=== PATIENT | female | born 1990 | race American Indian/Alaskan Native ===

== ENCOUNTER 2019-01-18 19:49 | Emergency (ER) | payer MEDICAID ==
--- NOTE | 2019-01-18 20:12 | Event Note ---
ED Screening Note ED Screening Note: pt presents with foul odor vaginal discharge no dysuria LNMP december 04 PMHx asthma no allergies This initial assessment/diagnostic orders/clinical plan/treatment(s) is/are subject to change based on patients health status, clinical progression and re- assessment by fellow clinical providers in the ED. Further treatment and workup at subsequent clinical providers discretion. Patient/guardian urged not to elope from the ED as their condition may be serious if not clinically assessed and managed. Initial orders include: UA, urine preg
[2019-01-18 20:13] VITALS: BP 103/73
[2019-01-18 21:43] LABS: HCG Qualitative,Urine Positive (Negative)
[2019-01-18 21:50] LABS: Bilirubin,Urine NEG (Negative); Blood,Urine NEG (Negative); Color,Urine Yellow (Yellow); Hyaline Casts,Urine 2 /LPF; Mucus,Urine 3+ /HPF; Protein,Urine <15 mg/dL mg/dL (Negative)
== END 2019-01-18 23:35 | disposition left against medical advice (07) ==
LOC: ED 19:49
DX: Z53.21 Procedure and treatment not carried out due to patient leaving prior to being seen by health care provider (principal)
CPT/HCPCS: 81001; 81025

== ENCOUNTER 2019-08-31 07:16 | Inpatient (IN) | payer MEDICAID ==
[2019-08-31] MEDS ORDERED: LACTATED RINGERS 1,000 ML ONE (07:33)
[2019-08-31] MEDS ORDERED: OXYTOCIN 20 UNIT/1000ML DRIP 20,000 MILLIUNITS/1,000 ML BAG IV ONE (07:34)
[2019-08-31 07:59] LABS: Hematocrit 29.9 % (30.3-42.9); Hemoglobin 9.7 gm/dl (10.1-14.3); Mean Corpuscular HGB Conc 32 % (30-34); Mean Corpuscular Volume 88 fl (79-97); Platelet Count 448 K/mm3 (140-440); Red Cell Distribution Width 16.3 % (13.2-15.2)
[2019-08-31] MEDS ORDERED: AMPICILLIN/NS 2 GM/100 ML 2 GM/100 ML BAG IV ONE ×2 (08:00→08:06)
[2019-08-31] MEDS ORDERED: TERBUTALINE 1 MG/1 ML INJ IVP PRN (08:00)
[2019-08-31] MEDS ORDERED: LIDOCAINE (2%) 20 MG/1 ML VIAL 20 ML MDV INFILTRATI NR (08:00)
[2019-08-31] MEDS ORDERED: MINERAL OIL 30 ML ORAL LIQD PO PRN (08:00)
[2019-08-31] MEDS ORDERED: OXYTOCIN 20 UNIT/1000ML DRIP 20 UNITS/1,000 ML BAG IV SCH ×2 (08:00→10:00)
[2019-08-31] MEDS ORDERED: ePHEDrine SULFATE 50 MG/1 ML INJ IV PRN (08:00)
[2019-08-31] MEDS ORDERED: LACTATED RINGERS 1,000 ML IV SCH (08:00)
[2019-08-31] MEDS ORDERED: TERBUTALINE 1 MG/1 ML INJ SUB-Q PRN (08:00)
[2019-08-31] MEDS ORDERED: fentaNYL 100 MCG/2 ML INJ IV PRN (08:00)
[2019-08-31] MEDS ORDERED: OXYTOCIN DRIP 30 UNITS/500 ML BAG IV SCH (08:00)
--- NOTE | 2019-08-31 08:04 | History and Physical Report ---
History of Present Illness Date of examination: 08/31/19 Date of admission: 08/31/19 07:21 Chief complaint: labor History of present illness: This is 29 yo at 39 weeks here for contractions. Patient is [facility] patient. Past History Past Medical History: no pertinent history Past Surgical History: no surgical history Family/Genetic History: none Social history: single. denies: smoking, alcohol abuse, prescription drug abuse - Obstetrical History Expected Date of Delivery: 09/10/19 Actual Gestation: 38 Week(s) 4 Day(s) : 4 Para: 3 Hx # Term Pregnancies: 3 Number of Pregnancies: 0 Spontaneous Abortions: 0 Induced : 0 Number of Living Children: 3 Medications and Allergies Allergies Allergy/AdvReac Type Severity Reaction Status Date / Time No Known Allergies Allergy Verified 08/28/19 02:46 Active Meds: Active Medications Ephedrine Sulfate (Ephedrine Sulfate) 10 mg IV Q2M PRN PRN Reason: Hypotension Fentanyl (Sublimaze) 100 mcg IV Q2H PRN PRN Reason: Labor Pain Oxytocin/Sodium Chloride (Pitocin/Ns 20 Unit/1000ml Drip) 20 units in 1,000 mls @ 125 mls/hr IV DIRECT NEVAEH Oxytocin/Sodium Chloride (Pitocin/Ns 30 Unit/500ml) 30 units in 500 mls @ 1 mls/hr IV TITR NEVAEH; Protocol Lactated Ringer's (Lactated Ringers) 1,000 mls @ 125 mls/hr IV DIRECT NEVAEH Lidocaine (Xylocaine 2%) 20 ml INFILTRATI ONCE NR Stop: 09/01/19 07:59 Mineral Oil (Mineral Oil) 30 ml PO QHS PRN PRN Reason: Constipation Terbutaline Sulfate (Brethine) 0.25 mg SUB-Q ONCE PRN PRN Reason: Hyperstimulation/Hypertonicity Terbutaline Sulfate (Brethine) 0.25 mg IVP ONCE PRN PRN Reason: Hyperstimulation/Hypertonicity Review of Systems All systems: negative - Vital Signs Vital signs: Vital Signs Pulse Pulse Ox 96 H 80 L 08/31/19 07:30 08/31/19 07:30 Temp Pulse Resp BP Pulse Ox 103 H 120/62 100 08/31/19 07:45 08/31/19 07:40 08/31/19 07:45 - Physical Exam Breasts: Positive: normal Cardiovascular: Regular rate, Normal S1 Lungs: Positive: Clear to auscultation, Normal air movement Abdomen: Positive: normal appearance, soft, normal bowel sounds. Negative: distention, tenderness, guarding Genitourinary (Female): Positive: normal external genitalia, normal perenium Vagina: Positive: normal moisture Uterus: Positive: normal size, normal contour Anus/Rectum: Positive: normal perianal skin Extremities: Positive: normal Deep Tendon Reflex Grade: Normal +2 - Obstetrical FHR: category 1 Cervical Dilatation: 6 Cervical Effacement Percentage: 80 station: 0 Uterine Contraction Pattern: Regular Uterine Tone Measurement Phase: Contraction Uterine Contraction Intensity: Moderate Results Result Diagrams: 08/31/19 07:45 Abnormal lab results 08/31/19 Range/Units 07:45 WBC 13.1 H (4.5-11.0) K/mm3 RBC 3.40 L (3.65-5.03) M/mm3 Hgb 9.7 L (10.1-14.3) gm/dl Hct 29.9 L (30.3-42.9) % RDW 16.3 H (13.2-15.2) % Plt Count 448 H (140-440) K/mm3 All other labs normal. Assessment and Plan A/P IUP 38 weeks active labor GBS unknown- amp given expect vaginal delivery
[2019-08-31] MEDS ORDERED: DEXMEDETOMIDINE 200 MCG/2 ML VIAL IV ONE (08:17)
[2019-08-31] MEDS ORDERED: fentaNYL-BUPIV 2 MCG/ML-0.125% 200 MCG/100 ML BAG EPIDURAL ONE (08:47)
[2019-08-31] MEDS ORDERED: fentaNYL-BUPIV 2 MCG/ML-0.125% 200 MCG/100 ML BAG EPIDURAL SCH (09:00)
--- NOTE | 2019-08-31 09:04 | Anesthesia Consultation ---
Anesthesia Consult and Med Hx Date of service: 08/31/19 - Airway Anesthetic Teeth Evaluation: Good ROM Head & Neck: Adequate Mental/Hyoid Distance: Adequate Mallampati Class: Class II Intubation Access Assessment: Good - Pulmonary Exam CTA: Yes - Cardiac Exam Cardiac Exam: RRR - Pre-Operative Health Status ASA Pre-Surgery Classification: ASA2, Emergency Proposed Anesthetic Plan: Epidural - Pulmonary Hx Asthma: Yes - Cardiovascular System Hx Hypertension: No - Central Nervous System Hx Seizures: No Hx Psychiatric Problems: No - Endocrine Hx Renal Disease: No Hx Hypothyroidism: No Hx Hyperthyroidism: No - Hematic Hx Anemia: No Hx Sickle Cell Disease: No - Other Systems Hx Alcohol Use: No
--- NOTE | 2019-08-31 09:07 | Progress Note ---
Labor Epidural - Labor Epidural Start Time: 08:21 Stop Time: 08:27 Performed by:: OLGA SKELTON Procedure: Patient is requesting a laboring epidural for laboring pain. Patient IDed, H&P reviewed, all questions and concerns were answered, and consent was signed. Timeout was performed at bedside. Patient in sitting position. Sterile prep and drape was performed. 3 ml of 1% lidocaine skin wheal at L 3- L 4. 18-gauge Touhy epidural needle was advanced to loss of resistance with air technique. Negative CSF negative blood. Epidural catheter advanced to 15 centimeters. Negative aspiration negative test dose. Sterile dressing applied. Patient tolerated procedure.
--- NOTE | 2019-08-31 09:26 | Procedure Note ---
OB Delivery Note - Delivery Date of Delivery: 08/31/19 Surgeon: ABBY HARMAN Estimated blood loss: 100cc - Vaginal Delivery position: OA Intrapartum events: none Delivery induction: none Delivery augmentation: rupture of membranes Delivery monitor: external FHT, external uterine Route of delivery: Delivery placenta: spontaneous Delivery cord: nuchal cord, 3 umbilical vessels Episiotomy: none Delivery laceration: none Anesthesia: none Delivery comments: he patient progressed to complete complete +1 and began pushing. Patient pushed a viable male infant at 0918 prioe to delivery of a loose cord around neck reduced . The infant is a liveborn male with Apgars of 8 and 9 weight 5 pounds 12 ounce the infant was bulb suctioned. The cord was clamped and cut x2 and the infant was passed off to the [facility] team. The placenta delivered spontaneously intact with a three-vessel cord. The patient had no lacerations to repair. laps count correct x2. EBL 100 cc. Patient tolerated procedure well.
[2019-08-31] MEDS ORDERED: NALOXONE 2 MG/2 ML INJ IV PRN (09:30)
[2019-08-31] MEDS ORDERED: ACETAMINOPHEN 325 MG TAB PO PRN (10:00)
[2019-08-31] MEDS ORDERED: WITCH HAZEL/ GLYCERIN PAD TP PRN (10:00)
[2019-08-31] MEDS ORDERED: HYDROcodone/ACETAMINOPHEN 5-325 MG TAB PO PRN (10:00)
[2019-08-31] MEDS ORDERED: PROMETHAZINE 25 MG TAB PO PRN (10:00)
[2019-08-31] MEDS ORDERED: PROMETHAZINE 25 MG RECT SUPP PR PRN (10:00)
[2019-08-31] MEDS ORDERED: LANOLIN/ZINC/DIMETHICONE (LANSINOH) 7 GM TP PRN (10:00)
[2019-08-31] MEDS ORDERED: ONDANSETRON 4 MG/2 ML INJ IV PRN (10:00)
[2019-08-31] MEDS ORDERED: diphenhydrAMINE 25 MG CAP PO PRN (10:00)
[2019-08-31] MEDS ORDERED: KETOROLAC 30 MG/1 ML INJ IV PRN (10:00)
[2019-08-31] MEDS: oxyCODONE /ACETAMINOPHEN 5-325MG TAB PO PRN (13:09)
--- NOTE | 2019-08-31 13:09 | Post Anesthesia Evaluation ---
- Post Anesthesia Evaluation Patient Participated: Yes Airway Patent: Yes Stable Respiratory Function: Yes Nausea/Vomiting: No Temp > 96.8F: Yes Pain Manageable: Yes Adequeate Hydration: Yes Anesthesia Complications: No Block Receding Appropriately: Yes Patient on Ventilator: No
[2019-08-31] MEDS: IBUPROFEN 600 MG TAB PO SCH ×2 (17:23→22:25)
[2019-08-31] MEDS ORDERED: MAGNESIUM HYDROXIDE (MOM) ORAL LIQD UDC PO PRN (22:00)
[2019-08-31] MEDS: DOCUSATE SODIUM 100 MG CAP PO SCH (22:24)
[2019-08-31 22:52] LABS: Hematocrit 28.8 % (30.3-42.9); Hemoglobin 9.4 gm/dl (10.1-14.3)
[2019-09-01] MEDS: IBUPROFEN 600 MG TAB PO SCH ×3 (04:54→23:52)
[2019-09-01] MEDS ORDERED: TETANUS,DIPH,PERTUSS(ACELL) VACCINE 0.5 ML SYRINGE IM ONE (06:00)
[2019-09-01] MEDS: PRENATAL VIT27-FE FUMARATE-FOLIC ACID VIT TAB PO SCH (10:14)
[2019-09-01] MEDS: DOCUSATE SODIUM 100 MG CAP PO SCH ×2 (10:14→22:04)
[2019-09-01] MEDS ORDERED: MEASLES, MUMPS & RUBELLA 12,500 UNIT/0.5 ML VACCINE SUB-Q ONE (11:00)
[2019-09-01] MEDS: oxyCODONE /ACETAMINOPHEN 5-325MG TAB PO PRN (16:19)
[2019-09-01] MEDS: SENNOSIDES/DOCUSATE SODIUM 8.6/50 MG TAB PO SCH ×3 (16:24→22:08)
[2019-09-02] MEDS: IBUPROFEN 600 MG TAB PO SCH (05:28)
[2019-09-02] MEDS: PRENATAL VIT27-FE FUMARATE-FOLIC ACID VIT TAB PO SCH (09:30)
[2019-09-02] MEDS: DOCUSATE SODIUM 100 MG CAP PO SCH (09:30)
--- NOTE | 2019-09-02 12:14 | Progress Note ---
Assessment and Plan PPD 2 s/p . Doing well. Plan for discharge on today. Subjective - Subjective Date of service: 09/02/19 Patient reports: appetite normal, voiding normally, pain well controlled : doing well Objective - Vital Signs Latest vital signs: Vital Signs Temp Pulse Resp BP Pulse Ox 09/02/19 09:30 20 09/02/19 08:36 98.1 F 80 20 121/80 100 09/01/19 23:25 98.2 F 76 20 126/87 100 09/01/19 16:23 98.2 F 83 20 118/80 100 09/01/19 16:19 20 Intake and Output 09/01/19 09/02/19 09/02/19 22:59 06:59 14:59 Intake Total 240 360 Balance 240 360 Intake: Oral 240 360 Other: Total, Intake Amount 240 360 # Voids Void 1 1 1 - Exam Breasts: Present: deferred Cardiovascular: Present: Regular rate, Normal S1, Normal S2 Lungs: Present: Clear to auscultation, Normal air movement Abdomen: Present: normal appearance, soft, normal bowel sounds Vulva: both: normal Uterus: Present: normal, firm Extremities: Present: normal Deep Tendon Reflex Grade: Normal +2
--- NOTE | 2019-09-02 12:17 | Discharge Summary ---
Providers - Providers Date of Admission: 08/31/19 07:21 Date of discharge: 09/02/19 Attending physician: ABBY HARMAN MD Primary care physician: ABBY HARMAN MD Hospitalization Reason for admission: active labor Delivery: Episiotomy: none Other procedures: none complications: none Discharge diagnosis: IUP at term delivered baby: male Hospital course: unremarkable Condition at discharge: Stable Disposition: DC-01 TO HOME OR SELFCARE Plan - Discharge Medications Prescriptions: Ibuprofen [Motrin 600 MG tab] 600 mg PO Q6H #40 tablet HYDROcodone/APAP 5-325 [[place] 5-325 mg TAB] 2 each PO Q6H PRN #20 PRN Reason: Pain, Moderate (4-6) - Provider Discharge Summary Activity: routine, no sex for 6 weeks, no heavy lifting 4 weeks, no strenuous exercise Diet: routine Instructions: routine Additional instructions: [] Smoking cessation referral if applicable(refer to patient education folder for contact #) [] Refer to [facility] Booklet Call your doctor immediately for: * Fever > 100.5 * Heavy vaginal bleeding ( >1 pad per hour) * Severe persistent headache * Shortness of breath * Reddened, hot, painful area to leg or breast * Drainage or odor from incision. * Keep incision clean and dry at all times and follow doctor's instructions regarding bathing/showering - Follow up plan Follow up: ABBY HARMAN MD [Primary Care Provider] - 7 Days Forms: C Discharge Summary, DC Identification Form
[2019-09-02 14:20] VITALS: BP 120/78
== END 2019-09-02 14:44 | disposition home or self-care (01) | DRG 775 ==
LOC: TRG 07:16 → LD 07:18 → TRG 07:20 → LD 07:21 → OB 12:10
PROVIDERS: ADMIT Obstetrics & Gynecology; ATTEND Obstetrics & Gynecology
PROC: 10E0XZZ Delivery of Products of Conception, External Approach (ICD-10-PCS; principal; 2019-08-31)
DX: O69.81X0 Labor and delivery complicated by cord around neck, without compression, not applicable or unspecified (principal); Z3A.38 38 weeks gestation of pregnancy; Z37.0 Single live birth
CPT/HCPCS: 36415; 85014; 85018; 85027; 86592; 86706; 86762; 86850; 86900; 86901; 87806; G0378; J0290; J2590; J3010; J3490; J7120

== ENCOUNTER 2020-07-04 01:22 | Outpatient (CLI) | payer MEDICAID ==
[2020-07-04 02:40] VITALS: BP 106/71
--- NOTE | 2020-07-04 03:20 | Ultrasound Report ---
US OB LIMITED INDICATION / CLINICAL INFORMATION: Placenta and EFW. COMPARISON: None available. FINDINGS: There is a single intrauterine in a breech presentation. The heart rate is 151 bpm. T he placenta is located anteriorly, is grade 0 and is free of the os. Amniotic fluid volume is normal with the deepest vertical pocket measuring 4 cm. The estimated weight is 174 +/- 26 g. The estimated sonographic gestational age is 16 weeks 6 d ays with an EDC of 12/13/20. Signer Name: Martell Villarreal MD Signed: 07/04/2020 3:16 AM Workstation Name: [id number]
== END 2020-07-04 03:11 | disposition home or self-care (01) ==
LOC: TRG 01:22 → APU 01:23 → TRG 03:11
PROVIDERS: ATTEND Obstetrics & Gynecology
DX: O46.8X2 Other antepartum hemorrhage, second trimester (principal); Z3A.16 16 weeks gestation of pregnancy
CPT/HCPCS: 59025; 76816

== ENCOUNTER 2020-11-30 01:40 | Outpatient (CLI) | payer MEDICAID ==
[2020-11-30 02:10] VITALS: BP 126/77
[2020-11-30 04:08] LABS: Bacteria,Urine 1+ /HPF (Negative); Bilirubin,Urine NEG (Negative); Blood,Urine SM (Negative); Color,Urine Yellow (Yellow)
[2020-11-30 04:16] LABS: WBC,Urine > 182.0 /HPF (0.0-6.0)
== END 2020-11-30 05:15 | disposition home or self-care (01) ==
LOC: TRG 01:40 → APU 01:40 → TRG 05:15
PROVIDERS: ATTEND Obstetrics & Gynecology
DX: O26.893 Other specified pregnancy related conditions, third trimester (principal); R10.9 Unspecified abdominal pain; Z3A.38 38 weeks gestation of pregnancy
CPT/HCPCS: 81001

== ENCOUNTER 2020-12-01 06:43 | Inpatient (IN) | payer MEDICAID ==
[2020-12-01] MEDS ORDERED: LACTATED RINGERS 1,000 ML ONE (07:23)
[2020-12-01] MEDS ORDERED: fentaNYL 100 MCG/2 ML INJ ONE (07:24)
[2020-12-01] MEDS ORDERED: AMPICILLIN/NS 2 GM/100 ML 2 GM/100 ML BAG IV ONE ×2 (07:24→07:26)
[2020-12-01] MEDS ORDERED: CARBOPROST TROMETHAMINE 250 MCG/1 ML INJ IM PRN (07:26)
[2020-12-01] MEDS ORDERED: TERBUTALINE 1 MG/1 ML INJ SUB-Q PRN (07:26)
[2020-12-01] MEDS ORDERED: miSOPROStol 200 MCG TAB PR PRN (07:26)
[2020-12-01] MEDS ORDERED: LIDOCAINE (2%) 20 MG/1 ML VIAL 20 ML MDV INFILTRATI NR (07:26)
[2020-12-01] MEDS ORDERED: LOPERAMIDE 2 MG CAP PO PRN (07:26)
[2020-12-01] MEDS ORDERED: METHYLERGONOVINE MALEATE 0.2 MG/ML VIAL IM PRN (07:26)
[2020-12-01] MEDS ORDERED: ONDANSETRON 4 MG/2 ML INJ ONE (07:29)
[2020-12-01] MEDS ORDERED: BUTORPHANOL 2 MG/1 ML INJ IV PRN (08:00)
[2020-12-01] MEDS ORDERED: OXYTOCIN 10 UNIT/1 ML INJ IM PRN (08:00)
[2020-12-01] MEDS ORDERED: fentaNYL 100 MCG/2 ML INJ IV PRN (08:00)
[2020-12-01] MEDS ORDERED: OXYTOCIN DRIP 30 UNITS/500 ML BAG IV SCH ×2 (08:00)
[2020-12-01] MEDS ORDERED: ePHEDrine SULFATE 50 MG/1 ML INJ IV PRN (08:00)
[2020-12-01] MEDS ORDERED: LACTATED RINGERS 1,000 ML IV SCH (08:00)
[2020-12-01 08:32] LABS: Hematocrit 29.4 % (30.3-42.9); Hemoglobin 10.1 gm/dl (10.1-14.3); Mean Corpuscular HGB Conc 34 % (30-34); Mean Corpuscular Volume 89 fl (79-97); Platelet Count 407 K/mm3 (140-440); Red Blood Count 3.32 M/mm3 (3.65-5.03); Red Cell Distribution Width 16.3 % (13.2-15.2)
--- NOTE | 2020-12-01 08:36 | History and Physical Report ---
History of Present Illness Date of examination: 12/01/20 Date of admission: 12/01/20 07:26 Chief complaint: Contractions Past History - Obstetrical History : 6 Medications and Allergies Allergies Allergy/AdvReac Type Severity Reaction Status Date / Time No Known Allergies Allergy Verified 08/28/19 02:46 Home Medications Medication Instructions Recorded Confirmed Last Taken Type HYDROcodone/APAP 5-325 [[place] 2 each PO Q6H PRN #20 09/02/19 Unknown Rx 5-325 mg TAB] Ibuprofen [Motrin 600 MG tab] 600 mg PO Q6H #40 tablet 09/02/19 Unknown Rx Active Meds: Active Medications Butorphanol Tartrate (Butorphanol 2 Mg/1 Ml Inj) 2 mg IV Q2H PRN PRN Reason: Pain , Severe (7-10) Carboprost Tromethamine (Carboprost Tromethamine 250 Mcg/1 Ml Inj) 250 mcg IM ONCE PRN PRN Reason: Uterine Bleeding Stop: 12/02/20 07:25 Ephedrine Sulfate (Ephedrine Sulfate 50 Mg/1 Ml Inj) 10 mg IV Q2M PRN PRN Reason: Hypotension Fentanyl (Fentanyl 100 Mcg/2 Ml Inj) 100 mcg IV Q2H PRN PRN Reason: Pain,Severe (7-10) LABOR PAIN Oxytocin/Sodium Chloride (Pitocin/Ns 30 Unit/500ml) 30 units in 500 mls @ 2 mls/hr IV TITR NEVAEH; Protocol Lactated Ringer's (Lactated Ringers) 1,000 mls @ 125 mls/hr IV DIRECT NEVAEH Last Admin: 12/01/20 07:55 Dose: 125 mls/hr Documented by: Oxytocin/Sodium Chloride (Pitocin/Ns 30 Unit/500ml) 30 units in 500 mls @ 40 mls/hr IV TITR NEVAEH; Protocol Ampicillin Sodium (Ampicillin/Ns 1 Gm/50 Ml) 1 gm in 50 mls @ 100 mls/hr IV Q4H NEVAEH; Protocol Stop: 12/01/20 23:59 Lidocaine (Lidocaine (2%) 20 Mg/1 Ml Vial 20 Ml Mdv) 20 ml INFILTRATI ONCE NR Stop: 12/01/20 15:00 Loperamide HCl (Loperamide 2 Mg Cap) 2 mg PO ONCE PRN PRN Reason: give with Hemabate Stop: 12/02/20 07:25 Methylergonovine Maleate (Methylergonovine Maleate 0.2 Mg/Ml Vial) 0.2 mg IM ONCE PRN PRN Reason: Uterine Bleeding Stop: 12/02/20 07:25 Mineral Oil (Mineral Oil 30 Ml Oral Liqd) 30 ml PO QHS PRN PRN Reason: Constipation Misoprostol (Misoprostol 200 Mcg Tab) 800 mcg HI ONCE PRN PRN Reason: Uterine Bleeding Stop: 12/01/20 23:00 Oxytocin (Oxytocin 10 Unit/1 Ml Inj) 10 unit IM ONCE PRN PRN Reason: Uterine Bleeding Terbutaline Sulfate (Terbutaline 1 Mg/1 Ml Inj) 0.25 mg SUB-Q ONCE PRN PRN Reason: Hyperstimulation/Hypertonicity Stop: 12/02/20 07:25 - Vital Signs Vital signs: Vital Signs Pulse BP 77 115/77 12/01/20 07:43 12/01/20 07:43 Temp Pulse Resp BP Pulse Ox 62 113/81 12/01/20 08:31 12/01/20 08:31 Results All other labs normal.
[2020-12-01] MEDS ORDERED: MAGNESIUM HYDROXIDE (MOM) ORAL LIQD UDC PO PRN (08:38)
[2020-12-01] MEDS ORDERED: LANOLIN/ZINC/DIMETHICONE (LANSINOH) 7 GM TP PRN (08:38)
[2020-12-01] MEDS ORDERED: HYDROcodone/ACETAMINOPHEN 5-325 MG TAB PO PRN (08:38)
[2020-12-01] MEDS ORDERED: PROMETHAZINE 25 MG TAB PO PRN (08:38)
[2020-12-01] MEDS ORDERED: diphenhydrAMINE 25 MG CAP PO PRN (08:38)
[2020-12-01] MEDS ORDERED: PROMETHAZINE 25 MG RECT SUPP PR PRN (08:38)
[2020-12-01] MEDS ORDERED: WITCH HAZEL/ GLYCERIN PAD TP PRN (08:38)
[2020-12-01] MEDS ORDERED: ACETAMINOPHEN 325 MG TAB PO PRN (08:38)
[2020-12-01] MEDS ORDERED: ONDANSETRON 4 MG/2 ML INJ IV PRN (08:38)
--- NOTE | 2020-12-01 08:38 | Procedure Note ---
OB Delivery Note - Delivery Date of Delivery: 12/01/20 Surgeon: CHAGO WATERS Estimated blood loss: 100cc - Vaginal Delivery presentation: vertex Delivery position: OA Delivery monitor: external FHT, external uterine Route of delivery: Delivery placenta: spontaneous Delivery cord: 3 umbilical vessels Episiotomy: none Delivery laceration: none Delivery comments: The patient presented in active labor and rapidly progressed to complete complete +1. Amniotomy was performed with evidence of clear fluid. The patient pushed to deliver a live-born male with Apgars of 9 and 9 weight of 6 pounds 0 ounces. After delivery the head the shoulders delivered without difficulty. The was bulb suctioned and the cord was clamped and cut. The was placed on the warmer for further evaluation. The placenta was delivered spontaneously intact with a three-vessel cord. No lacerations were noted. Estimated blood loss of 100 mL - Infant A at 1 minute: 9 at 5 minutes: 9 Infant Gender: Male (Weight 6 pounds 0 ounces)
[2020-12-01] MEDS ORDERED: AMPICILLIN/NS 1 GM/50 ML 1 GM/50 ML BAG IV SCH (11:30)
[2020-12-01] MEDS: IBUPROFEN 600 MG TAB PO SCH ×3 (12:00→22:12)
[2020-12-01 20:45] LABS: Hematocrit 24.9 % (30.3-42.9); Hemoglobin 8.6 gm/dl (10.1-14.3)
[2020-12-01] MEDS ORDERED: MINERAL OIL 30 ML ORAL LIQD PO PRN (22:00)
[2020-12-02] MEDS: IBUPROFEN 600 MG TAB PO SCH ×3 (03:00→15:54)
--- NOTE | 2020-12-02 07:56 | Progress Note ---
Assessment and Plan A: PPD# 1 s/p at term P: Continue with routine care. Patient will be discharged at 48hrs d/t inadequate IP treatment of GBS. If still in NICU at time of d/c patient will be allowed to room-in. Subjective - Subjective Date of service: 12/02/20 Principal diagnosis: s/p at term Interval history: PPD# 1 s/p at term. Patient is resting and has no complaints. Reports adequate pain control and decreasing lochia. Patient reports: appetite normal, voiding normally, pain well controlled, ambulating normally [place]: in NICU Objective - Vital Signs Latest vital signs: Vital Signs Temp Pulse Resp BP BP Pulse Ox 12/02/20 01:00 97.3 F L 66 18 117/79 100 12/01/20 20:52 98.4 F 76 18 117/67 100 12/01/20 16:30 98.2 F 78 18 112/73 100 12/01/20 10:30 97.8 F 89 18 125/70 12/01/20 09:48 78 124/63 12/01/20 09:31 78 120/80 12/01/20 09:16 75 111/75 12/01/20 09:01 60 115/79 12/01/20 08:46 79 120/71 12/01/20 08:38 77 120/65 12/01/20 08:31 62 113/81 Intake and Output 12/01/20 12/01/20 12/02/20 15:59 23:59 07:59 Intake Total 360 360 Output Total 600 600 Balance -600 -240 360 Intake: Intake, Free Water 360 360 Output: Urine 600 600 Void 600 600 Other: Total, Output Amount 400 400 # Voids Void 1 1 Estimated Blood Loss 100 - Labs Labs: Abnormal lab results 12/01/20 12/01/20 Range/Units 07:26 20:16 RBC 3.32 L (3.65-5.03) M/mm3 Hgb 8.6 L (10.1-14.3) gm/dl Hct 29.4 L 24.9 L (30.3-42.9) % RDW 16.3 H (13.2-15.2) %
--- NOTE | 2020-12-02 08:01 | Discharge Summary ---
Providers - Providers Date of Admission: 12/01/20 07:26 Date of discharge: 12/03/20 Attending physician: CHAGO WATERS Primary care physician: CHAGO WATERS Hospitalization Reason for admission: active labor, IUP at term Delivery: Episiotomy: none Laceration: none Other procedures: none complications: none Discharge diagnosis: IUP at term delivered [place] baby: male Condition at discharge: Good Disposition: DC-01 TO HOME OR SELFCARE Plan - Discharge Medications Prescriptions: Ferrous Sulfate [Feosol 325 MG tab] 325 mg PO BID #60 tablet Ibuprofen [Motrin] 600 mg PO Q8H PRN #30 tablet PRN Reason: Pain - Provider Discharge Summary Activity: routine, no sex for 6 weeks, no heavy lifting 4 weeks, no strenuous exercise Diet: routine Instructions: routine Additional instructions: [] Smoking cessation referral if applicable(refer to patient education folder for contact #) [] Refer to [facility] Booklet Call your doctor immediately for: * Fever > 100.5 * Heavy vaginal bleeding ( >1 pad per hour) * Severe persistent headache * Shortness of breath * Reddened, hot, painful area to leg or breast * Drainage or odor from incision. * Keep incision clean and dry at all times and follow doctor's instructions regarding bathing/showering - Follow up plan Follow up: [facility] [Advanced Practice Nurse] - 14 Days
[2020-12-02] MEDS: FERROUS SULFATE 325 MG TAB PO SCH (09:07)
[2020-12-03] MEDS: IBUPROFEN 600 MG TAB PO SCH ×2 (00:11→14:18)
[2020-12-03] MEDS: FERROUS SULFATE 325 MG TAB PO SCH ×2 (00:11→08:15)
[2020-12-03 17:28] VITALS: BP 122/84
== END 2020-12-03 17:30 | disposition home or self-care (01) | DRG 775 ==
LOC: TRG 06:43 → APU 06:49 → LD 07:04 → TRG 07:35 → OB 10:56
PROVIDERS: ADMIT Obstetrics & Gynecology; ATTEND Obstetrics & Gynecology
PROC: 10E0XZZ Delivery of Products of Conception, External Approach (ICD-10-PCS; principal; 2020-12-01)
DX: O80 Encounter for full-term uncomplicated delivery (principal); Z37.0 Single live birth; Z3A.00 Weeks of gestation of pregnancy not specified; Z20.822 Contact with and (suspected) exposure to COVID-19
CPT/HCPCS: 36415; 81001; 85014; 85018; 85027; 86592; 86850; 86900; 86901; 99211; G0378; G0463; J0290; J2405; J3010; J7120; U0003

== ENCOUNTER 2021-02-04 09:34 | Day surgery (SDC) | payer MEDICAID, OTHER ==
[2021-02-03 10:51] LABS: Hemoglobin 12.3 gm/dl (10.1-14.3); Mean Corpuscular HGB Conc 35 % (30-34); Mean Corpuscular Volume 89 fl (79-97); Platelet Count 376 K/mm3 (140-440); Red Blood Count 3.94 M/mm3 (3.65-5.03); Red Cell Distribution Width 18.3 % (13.2-15.2)
[~2021-02-04 09:34] MED LIST: LACTATED RINGERS 1,000 ML IV SCH
--- NOTE | 2021-02-04 09:43 | Short Stay Summary ---
Short Stay Documentation Date of service: 02/04/21 Narrative H&P: 30y/o with undesired fertility. The patient is aware of other contraceptive options. She elects for permanent sterilization. - History Principal diagnosis: Unwanted fertility Past Medical History: No medical history Past Surgical History: Other (toe surgery) Social history: single - Allergies and Medications Current Medications: Allergies No Known Allergies Allergy (Verified 01/28/21 14:55) Home Medications Medication Instructions Recorded Confirmed Last Taken Type Ferrous Sulfate [Feosol 325 MG tab] 325 mg PO BID #60 tablet 12/02/20 01/28/21 Unknown Rx Albuterol Sulfate [Proventil Hfa] 2 puff IH Q4H PRN 01/28/21 01/28/21 Unknown History Active Medications Lactated Ringer's (Lactated Ringers) 1,000 mls @ 100 mls/hr IV DIRECT NEVAEH - Physical exam General appearance: no acute distress Integumentary: no rash HEENT: Atraumatic Lungs: Clear to auscultation Breasts: deferred Heart: Regular rate Gastrointestinal: normal Female Genitourinary: deferred Rectal Exam: deferred - Brief post op/procedure progress note Date of procedure: 02/04/21 Pre-op diagnosis: Unwanted fertility Post-op diagnosis: same (Unwanted fertility) Procedure: Laparoscopy Bilateral salpingectomy Anesthesia: GETA Surgeon: CHAGO WATERS Estimated blood loss: minimal Pathology: list (Bilateral fallopian tubes) Specimen disposition: to lab Condition: stable - Hospital course Hospital course: The patient was admitted the day of surgery and underwent a laparoscopy and bilateral salpingectomy. Please see operative note for details of surgery. Her postoperative course was uneventful. - Disposition Condition at discharge: Good Disposition: 01 HOME / SELF CARE / HOMELESS Short Stay Discharge Plan Activity: other (Pelvic rest for 1 week) Diet: regular Additional Instructions: Follow-up is not required Follow-up as needed Prescriptions: Ibuprofen [Motrin] 800 mg PO Q8HR PRN #30 tablet PRN Reason: Pain , Severe (7-10) HYDROcodone/APAP 5-325 [[place] 5/325] 1 each PO Q6HR PRN #15 tablet PRN Reason: Pain
--- NOTE | 2021-02-04 10:49 | Anesthesia Day of Surgery ---
Anesthesia Day of Surgery - Day of Surgery Patient Examined: Yes Patient H&P Reviewed: Yes Patient is NPO: Yes
--- NOTE | 2021-02-04 10:51 | Anesthesia Consultation ---
Anesthesia Consult and Med Hx Date of service: 02/04/21 - Airway Anesthetic Teeth Evaluation: Good, Poor (Missing and multiple caries) ROM Head & Neck: Adequate Mental/Hyoid Distance: Adequate Mallampati Class: Class II Intubation Access Assessment: Good - Pre-Operative Health Status ASA Pre-Surgery Classification: ASA2 Proposed Anesthetic Plan: General - Pulmonary Hx Smoking: Yes Hx Asthma: Yes COPD: No Hx Pneumonia: No - Cardiovascular System Hx Hypertension: No - Central Nervous System Hx Seizures: No Hx Psychiatric Problems: No - Gastrointestinal Hx Gastroesophageal Reflux Disease: Yes (with greasy food and red sauce) - Endocrine Hx Renal Disease: No Hx End Stage Renal Disease: No Hx Hypothyroidism: No Hx Hyperthyroidism: No - Hematic Hx Anemia: Yes Hx Sickle Cell Disease: No - Other Systems Hx Alcohol Use: No Hx Cancer: No
[2021-02-04] MEDS ORDERED: ACETAMINOPHEN 500 MG TAB PO SCH (11:00)
[2021-02-04] MEDS ORDERED: MAGNESIUM OXIDE 400 MG TAB PO SCH (11:00)
[2021-02-04] MEDS ORDERED: HYDROmorphone 1 MG/1 ML INJ IV PRN ×2 (11:00)
[2021-02-04] MEDS ORDERED: MIDAZOLAM 2 MG/2 ML INJ IV NR (11:00)
[2021-02-04] MEDS ORDERED: CELECOXIB 200 MG CAP PO NR (11:00)
[2021-02-04] MEDS ORDERED: ONDANSETRON 4 MG/2 ML INJ IV PRN (11:00)
[2021-02-04] MEDS ORDERED: propofoL 200 MG/20 ML VIAL IV ONE (11:22)
[2021-02-04] MEDS ORDERED: LIDOCAINE MPF (2%) 20 MG/1 ML VIAL 5 ML ONE (11:22)
[2021-02-04] MEDS ORDERED: HYDROmorphone 1 MG/1 ML INJ ONE (11:22)
[2021-02-04] MEDS ORDERED: ROCURONIUM 50 MG/5 ML INJ IV ONE (11:24)
[2021-02-04] MEDS ORDERED: BUPIVACAINE/PF (0.5%) 5 MG/1 ML 10 ML VIAL INFILTRATI ONE ×2 (11:29→12:10)
[2021-02-04] MEDS ORDERED: dexAMETHasone 20 MG/5 ML VIAL ONE (11:57)
[2021-02-04] MEDS ORDERED: ONDANSETRON 4 MG/2 ML INJ ONE (11:58)
[2021-02-04] MEDS ORDERED: KETOROLAC 30 MG/1 ML INJ ONE (12:08)
[2021-02-04] MEDS ORDERED: GLYCOPYRROLATE 0.4 MG/2 ML INJ ONE (12:09)
[2021-02-04] MEDS ORDERED: NEOSTIGMINE 10MG/10 ML INJ MDV ONE (12:10)
[2021-02-04] MEDS ORDERED: SODIUM CHLORIDE 0.9% IRR 1,500 ML BOTTLE IR ONE (12:10)
--- NOTE | 2021-02-04 12:24 | Operative Report ---
Operative Report Operative Report: Date of surgery: February 04, 2021 Preoperative diagnosis: Unwanted fertility Postoperative diagnosis: Same as above Procedure: Laparoscopy; Bilateral salpingectomy Surgeon: Diana Keita M.D. Anesthesia: General endotracheal anesthesia Estimated blood loss: Minimal Pathology: Bilateral fallopian tubes Findings: Normal uterus tubes and ovaries Indication: 30-year-old -2-1-5 with unwanted fertility Procedure: The patient was taken to the operating room and given general endotracheal anesthesia without complication. The patient is prepped and draped in a normal sterile fashion. A bivalve speculum was placed in the patient's vagina and a single-tooth tenaculum was placed on the anterior lip of the cervix .A uterine acorn manipulator was placed, and the bivalve speculum was then removed. Attention was then turned to the patient's abdomen where a 5 mm infraumbilical skin incision was then made. A Veress needle was placed and peritoneal entry was verified water-filled syringe. Insufflation of the peritoneal cavity was performed with CO2 gas. A 5 mm trocar was placed and the laparoscope was then inserted. The patient was then placed in Trendelenburg. A 7 mm suprapubic skin incision was then made. Under direct visualization a 7 mm trocar was then placed. An additional 5 mm left lateral trocar was also placed. General survey of the patient's abdomen revealed normal uterus tubes and ovaries. The fallopian tube was then followed out to the fimbriated end. The LigaSure device was used in order to coagulate and transect the mesosalpinx. The fallopian tube was excised from the adnexa. The fallopian tube was removed through the 7 mm trocar. This was performed on the contralateral side as well. The trocars were then removed. The pneumoperitoneum was then released. The 5 mm trocar laparoscope was then removed. The skin incisions were then closed wi th 4-0 Monocryl. The incisions were injected with quarter percent Marcaine. Dressings were applied to the incision. The vaginal instruments were then removed atraumatically. Then successfully extubated and taken to the recovery room. All sponge laps and needle counts were correct x2.
[2021-02-04 13:55] VITALS: BP 117/73
--- NOTE | 2021-02-04 14:17 | Post Anesthesia Evaluation ---
- Post Anesthesia Evaluation Patient Participated: Yes Airway Patent: Yes Stable Respiratory Function: Yes Nausea/Vomiting: No Temp > 96.8F: Yes Pain Manageable: Yes Adequeate Hydration: Yes Anesthesia Complications: No Block Receding Appropriately: Not Applicable Patient on Ventilator: No
== END 2021-02-04 14:40 | disposition home or self-care (01) ==
LOC: OR 09:34
PROVIDERS: ATTEND Obstetrics & Gynecology
DX: Z30.2 Encounter for sterilization (principal); K21.9 Gastro-esophageal reflux disease without esophagitis; J45.909 Unspecified asthma, uncomplicated; D64.9 Anemia, unspecified; F17.210 Nicotine dependence, cigarettes, uncomplicated; Z79.899 Other long term (current) drug therapy; Z98.890 Other specified postprocedural states; Z20.822 Contact with and (suspected) exposure to COVID-19
CPT/HCPCS: 36415; 58670; 84703; 85027; 88302; J1100; J1170; J1885; J2405; J2704; J2710; J7120; U0003